=== PATIENT | female | born 1995 | race Caucasian/White ===

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

== ENCOUNTER 2018-01-02 23:34 | Emergency (ER) | payer SELFPAY ==
[~2018-01-02] VITALS: Ht 170.2 cm; Wt 121.1 kg
[2018-01-02 23:51] VITALS: Ht 170.2 cm; Wt 121.1 kg
[2018-01-03 02:14] VITALS: BP 125/80
== END 2018-01-03 02:14 | disposition home or self-care (01) ==
LOC: ED 23:34
DX: R50.9 Fever, unspecified (principal); R11.10 Vomiting, unspecified; R19.7 Diarrhea, unspecified

== ENCOUNTER 2018-06-14 20:15 | Emergency (ER) | payer SELFPAY ==
[~2018-06-14] VITALS: Ht 170.2 cm; Wt 117.9 kg
[2018-06-14 20:34] VITALS: Ht 170.2 cm; Wt 117.9 kg
[2018-06-14 22:02] LABS: PLATELET COUNT 130 x10^3mcL (130-400)
[2018-06-14 22:10] LABS: CALCIUM 8.1 mg/dL (8.5-10.1); CARBON DIOXIDE 23.8 mmol/L (21-32); CHLORIDE SERUM 100 mmol/L (98-107); GFR1 > 60 mL/min; GLUCOSE SERUM 103 mg/dL (74-106); POTASSIUM SERUM 3.5 mmol/L (3.5-5.1); SODIUM SERUM 134 mmol/L (136-145)
[2018-06-14 22:15] LABS: ALBUMIN 3.5 g/dL (3.4-5.0); ALKALINE PHOSPHATASE 98 U/L (46-116); ALT/SGPT 47 U/L (14-59); AST/SGOT 30 U/L (15-37); BILIRUBIN TOTAL 0.54 mg/dL (0.20-1.00); C REACTIVE PROTEIN 7.1 mg/dL (<=0.9); TOTAL PROTEIN, SERUM 7.8 g/dL (6.4-8.2)
[2018-06-14 22:29] LABS: CK-MB < 0.5 ng/mL (0-3.6)
[2018-06-14 22:30] LABS: CREATINE KINASE 874 U/L (26-192)
[2018-06-14 22:32] LABS: BASOPHIL % 0 % (0-2); RED CELL DISTRIBUTION WIDTH 20.2 % (11.5-14.5)
[2018-06-14 22:34] LABS: rbc morphology (normal/abnorm) ABNORMAL (NORMAL)
[2018-06-14 22:44] LABS: FREE T4 1.22 ng/dL (0.76-1.46); FREE THYROXINE INDEX 3.3 ug/dL (1.4-4.5); T4(THYROXINE) 8.8 ug/dL (4.7-13.3)
[2018-06-14 22:52] LABS: ERYTHROCYTE SED RATE 29 mm/hr (0-20); T3 TOTAL 0.78 ng/mL
[2018-06-14 23:04] VITALS: BP 105/63
[2018-06-14 23:08] LABS: microscopic required? NO
[2018-06-14 23:31] LABS: UA SPECIFIC GRAVITY <=1.005 (1.005-1.035); urine erythrocyte NEGATIVE (NEGATIVE)
== END 2018-06-14 23:33 | disposition home or self-care (01) ==
LOC: ED 20:15
PROVIDERS: Emergency Medicine; Specialist
DX: J10.1 Influenza due to other identified influenza virus with other respiratory manifestations (principal); E86.0 Dehydration; Z86.2 Personal history of diseases of the blood and blood-forming organs and certain disorders involving the immune mechanism
CPT/HCPCS: 84439; 87804; J3010; J7030; Q0092; Q0162

== ENCOUNTER 2019-05-05 16:55 | Emergency (ER) | payer MEDICAID ==
[~2019-05-05] VITALS: Ht 170.2 cm; Wt 110.2 kg
[2019-05-05 17:06] VITALS: Ht 170.2 cm; Wt 110.2 kg
[2019-05-05 18:43] VITALS: BP 131/62
== END 2019-05-05 18:43 | disposition home or self-care (01) ==
LOC: ED 16:55
DX: J02.0 Streptococcal pharyngitis (principal); H92.03 Otalgia, bilateral; Z86.2 Personal history of diseases of the blood and blood-forming organs and certain disorders involving the immune mechanism
CPT/HCPCS: J0561; J1100; J1885; J7030

== ENCOUNTER 2019-10-01 21:29 | Emergency (ER) | payer MEDICAID ==
[~2019-10-01] VITALS: Ht 170.2 cm; Wt 119.7 kg
[2019-10-01 21:38] VITALS: BP 131/68; Ht 170.2 cm; Wt 119.7 kg
== END 2019-10-01 22:47 | disposition left against medical advice (07) ==
LOC: ED 21:29
DX: Z53.21 Procedure and treatment not carried out due to patient leaving prior to being seen by health care provider (principal)